=== PATIENT | male | born 1975 | race American Indian/Alaskan Native ===

== ENCOUNTER 2016-10-30 21:42 | Emergency (ER) | payer OTHER | END 2016-10-30 22:54 | disposition left against medical advice (07) | LOC: ED 21:42 | DX: M54.5 Low back pain (principal); Z53.21 Procedure and treatment not carried out due to patient leaving prior to being seen by health care provider ==

== ENCOUNTER 2016-10-31 17:10 | Emergency (ER) | payer OTHER ==
[2016-10-31] MEDS ORDERED: FLEXERIL PO ONE (21:09)
[2016-10-31] MEDS ORDERED: MOTRIN PO ONE (21:09)
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
[2016-10-31 21:53] VITALS: BP 158/96
== END 2016-10-31 22:14 | disposition home or self-care (01) ==
LOC: ED 17:10
DX: M79.1 Myalgia (principal); F17.200 Nicotine dependence, unspecified, uncomplicated; V49.40XA Driver injured in collision with unspecified motor vehicles in traffic accident, initial encounter; Y93.89 Activity, other specified; Y99.8 Other external cause status; Y92.89 Other specified places as the place of occurrence of the external cause
CPT/HCPCS: 99282